=== PATIENT | female | born 1990 | race Caucasian/White ===

== ENCOUNTER 2018-03-03 16:54 | Emergency (ER) | payer OTHER ==
[~2018-03-03] VITALS: Ht 157.5 cm; Wt 99.8 kg
[~2018-03-03 16:54] MED LIST: PROAIR HFA8.5 GM INH
[2018-03-03 17:44] LABS: ABSOLUTE BASOPHIL COUNT 0 /CUMM (0.0-0.2); ABSOLUTE EOSINOPHIL COUNT 0 /CUMM (0.0-0.7); ABSOLUTE MONOCYTE COUNT 0.4 /CUMM (0.10-0.60); BASOPHIL % 0.4 % (0.0-2.0); EOSINOPHIL % 0.4 % (0-5); GRANULOCYTE % 77.7 % (42.2-75.2); HEMATOCRIT 43.3 % (37-47); MEAN CORPUSCULAR HGB CONC 33.4 G/DL (33.0-37.0); MEAN CORPUSCULAR VOLUME 83.7 FL (81.0-99.0); MEAN PLATELET VOLUME 8.6 FL (7.4-10.4); PLATELET COUNT 288 /CUMM (130-400); RED BLOOD CELL CT 5.17 /CUMM (4.20-5.40); WHITE BLOOD CELL COUNT 6.4 /CUMM (4.8-10.8)
--- NOTE | 2018-03-03 19:15 | ED GI/GU/ABDOMINAL COMPLAINT ---
See Addendum History of Present Illness General Chief Complaint: General Adult Stated Complaint: ?STOMACH VIRUS,ABDOM AREA "BLOATED",?DEHYDRATION Source: patient Exam Limitations: no limitations Vital Signs & Intake/Output Vital Signs & Intake/Output Vital Signs Date Time Temp Pulse Resp B/P B/P Pulse O2 O2 Flow FiO2 Mean Ox Delivery Rate 03/03 1716 99.3 110 18 137/92 98 Room Air Room Air Allergies Coded Allergies: Sulfa (Sulfonamide Antibiotics) (UNKNOWN 09/24/17) Reconcile Medications Albuterol Sulfate (Proair Hfa) 90 MCG HFA.AER.AD 2 PUF INH Q4-6 PRN PRN wheezing Triage Note: PT TO ED WITH C/O LOW AND UPPER ABD CRAMPING AND DIARRHEA SINCE TUESDAY, GETTING WORSE, TOOK IMMODIUM AND PEPTOBISMAL AT HOME, WHICH HELP A LITTLE BIT. Triage Nurses Notes Reviewed? yes ? n Is pt currently ? No Onset: Gradual Duration: day(s): Timing: multiple episodes today Quality/Severity: aching, dullness, moderate Location: generalized abdomen Prior Abdominal Problems: none Associated Symptoms: abdominal pain, diarrhea, nausea/vomiting HPI: 27 y/o female presenting for 3 days of worsening abdominal pain. Pain is described as crampy, periumbilical and epigastric. Associated with frequent diarrhea. States one episode almost every hour, nonbloody. Has chills but no fevers. Denies dysuria, vaginal bleeding, vaginal discharge. Pain has been steadily getting worse. Patient has loss of appetite. She has been nauseous but there is no vomiting. No recent travel, no sick contacts. Noticed after eating a hamburger 3 days ago. (QI MATT MD) Past History Travel History Traveled to [place] past 21 day No Medical History Any Pertinent Medical History? 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 Yes (QI MATT MD) Review of Systems Review of Systems Constitutional: Reports: chills, malaise. EENTM: Denies: no symptoms. Respiratory: Denies: no symptoms. Cardiovascular: Denies: no symptoms. GI: Reports: abdominal pain, bloating, diarrhea, nausea. Denies: vomiting. Genitourinary: Denies: discharge, dysuria, frequency, hematuria, hesitation, nocturia. Musculoskeletal: Denies: no symptoms. Skin: Denies: no symptoms. All Other Systems: Reviewed and Negative (QI MATT MD) Physical Exam Physical Exam General Appearance: well developed/nourished Head: atraumatic Eyes: Bilateral: normal appearance. Ears, Nose, Throat, Mouth: hearing grossly normal Neck: normal inspection Respiratory: no respiratory distress, quiet respiration Cardiovascular: regular rate/rhythm, normal peripheral pulses Gastrointestinal: soft, tenderness (Periumbilical, RLQ) Back: normal inspection Skin: intact, normal color, warm/dry Core Measures ACS in differential dx? No Sepsis Present: No Sepsis Focused Exam Completed? No (QI MATT MD) Progress Differential Diagnosis: appendicitis, diverticulitis, gastritis, inflamm bowel dis, pancreatitis, peptic ulcer, PUD/GERD, Gastroenteritis Plan of Care: Orders Procedure Date/time Status Add-on Test (ER Only) 03/03 191 Active LIPASE 03/03 1728 Complete URINE 03/03 1726 Complete URINALYSIS 03/03 1726 Complete COMPREHENSIVE METABOLIC PANEL 03/03 1726 Complete CBC WITHOUT DIFFERENTIAL 03/03 1726 Complete Laboratory Tests 03/03/18 1745: Urinalysis HEAVY H, Urine Color YEL, Urine Clarity HAZY H, Urine pH 6.0, Ur Specific [place] >= 1.030, Urine Protein TRACE H, Urine Ketones NEG, Urine Nitrite NEG, Urine Bilirubin NEG, Urine Urobilinogen 0.2, Ur Leukocyte Esterase NEG, Ur Microscopic SEDIMENT EXAMINED, Urine RBC 1-3, Urine WBC 1-3 H, Urine Hemoglobin MOD H, Urine Glucose NEG, Urine Test NEGATIVE 03/03/181727: Anion Gap 16, Estimated GFR > 60, BUN/Creatinine Ratio 18.6, Glucose 110 H, Calcium 9.3, Total Bilirubin 0.7, AST 31, ALT 44, Alkaline Phosphatase 130 H, Total Protein 7.7, Albumin 4.5, Globulin 3.2, Albumin/Globulin Ratio 1.4, Lipase 133, CBC w Diff NO MAN DIFF REQ, RBC 5.17, MCV 83.7, MCH 28.0, MCHC 33.4, RDW 15.0 H, MPV 8.6, Gran % 77.7 H, Lymphocytes % 15.8 L, Monocytes % 5.7, Eosinophils % 0.4, Basophils % 0.4, Absolute Granulocytes 5.0, Absolute Lymphocytes 1.0 L, Absolute Monocytes 0.4, Absolute Eosinophils 0, Absolute Basophils 0 Initial ED EKG: none Hand-Off Endorsed To: Manas Hernandez MD Endorsed Time: 2037 Pending: CT Comments: Pt with reproducible tenderness, including at Mcburney's point. She states her symptoms are worsening. Signs symptoms not c/w ovarian pathology. Will obtain CT a/p to r/o appendicits. If negative, illness is likely gastroenteritis and pt can continue taking immodium as needed. (QI MATT MD) Departure Departure Disposition: STILL A PATIENT Condition: Stable Referrals: Nancy Enriquez MD (PCP/Family) Departure Forms: Customer Survey General Discharge Information (QI MATT MD) Departure Clinical Impression Primary Impression: Abdominal pain Comments I agree with the physician's plan of care. (Manas Sheldon DO)
--- NOTE | 2018-03-03 20:40 | CT SCAN REPORT ---
EXAMINATION: CT ABDOMEN AND PELVIS WITH CONTRAST CLINICAL INFORMATION: Right lower quadrant pain. Tenderness. COMPARISON: None TECHNIQUE: Multidetector volumetric imaging was performed of the abdomen and pelvis following IV administration of 95 mL of Optiray 320 intravenous contrast. Sagittal and coronal reformatted images were obtained on the technologist's workstation. DLP: 829.01 mGy-cm FINDINGS: LUNG BASES: The visualized lung bases are unremarkable. LIVER, GALLBLADDER, AND BILIARY TREE: The liver is normal in size, shape, and attenuation. No focal hepatic lesion or biliary ductal dilatation is present. The gallbladder is unremarkable with no evidence of radiopaque gallstones, gallbladder wall thickening, or obvious pericholecystic inflammatory changes. PANCREAS: Unremarkable. SPLEEN: No focal splenic lesion. Spleen is mildly prominent in size. Spleen measures 13.1 cm anterior posterior by 11 cm superior inferior by 4.7 cm transverse. ADRENAL GLANDS: Unremarkable. KIDNEYS AND URETERS: The kidneys are normal in size, shape, and attenuation. No hydronephrosis, hydroureter, or calculi seen. No perinephric stranding. BLADDER: Unremarkable. GASTROINTESTINAL TRACT: The small and large bowel are unremarkable. The appendix is unremarkable. ABDOMINAL WALL: No significant hernia is appreciated. LYMPH NODES: Normal. VASCULAR: Unremarkable. PELVIC VISCERA: Unremarkable. OSSEOUS STRUCTURES: Unremarkable. IMPRESSION: No acute abnormality CT abdomen pelvis. Normal appendix.
[2018-03-03 21:31] VITALS: BP 128/78
== END 2018-03-03 21:00 ==
LOC: ERH 16:54
PROVIDERS: Emergency Medicine
DX: R10.33 Periumbilical pain (principal)
CPT/HCPCS: 74177; 81001; 81025; 96361; 96374; J2405